=== PATIENT | female | born 1950 | race Caucasian/White ===

== ENCOUNTER 2020-09-07 12:36 | Emergency (ER) | payer MEDICARE ==
[~2020-09-07] VITALS: Ht 157.5 cm; Wt 47.7 kg
[2020-09-07 14:05] LABS: BASOPHILS % (AUTO) 0.8 % (0-1); EOSINOPHILS # (AUTO) 0.1 X10'3 (0-0.9); EOSINOPHILS % (AUTO) 1.4 % (0-6); HEMATOCRIT 42.2 % (35.0-45.0); HEMOGLOBIN 13.9 g/dl (12.0-16.0); LYMPHOCYTES # (AUTO) 0.9 X10'3 (1.1-4.8); LYMPHOCYTES % (AUTO) 14.5 % (21-51); MEAN CORPUSCULAR HGB CONC 32.9 g/dL (33.0-36.5); MEAN CORPUSCULAR VOLUME 88.2 FL (78-98); MONOCYTES # (AUTO) 0.3 X10'3 (0-0.9); MONOCYTES % (AUTO) 4.9 % (2-12); NEUTROPHILS # (AUTO) 4.9 X10'3 (1.8-7.7); NEUTROPHILS % (AUTO) 78.4 % (42-75); PLATELET COUNT 276 X10'3 (140-440); RED BLOOD COUNT 4.79 X10'6 (4.20-5.60); RED CELL DISTRIBUTION WIDTH 13.6 % (11.5-14.5); WHITE BLOOD COUNT 6.3 X10'3 (4.5-11.0)
[2020-09-07 14:15] LABS: CHLORIDE 108 MMOL/L (99-107); GLUCOSE 103 MG/DL (70-104); POTASSIUM 4.5 MMOL/L (3.5-5.1); SODIUM 144 MMOL/L (135-145); TOTAL CARBON DIOXIDE 28.6 MMOL/L (24-32)
[2020-09-07 14:16] LABS: ALANINE AMINOTRANSFERASE 21 U/L (12-78); ALBUMIN 3.9 G/DL (3.4-5.0); ALBUMIN/GLOBULIN RATIO 1.2 (1.1-1.5); ALKALINE PHOSPHATASE 54 IU/L (46-116); ANION GAP 7 (8-16); ASPARTATE AMINO TRANSFERASE 26 U/L (10-37); BILIRUBIN,TOTAL 0.4 MG/DL (0.1-1.0); BLOOD UREA NITROGEN 12 MG/DL (7-18); BUN/CREATININE RATIO 18.5 (6.6-38.0); CALCIUM 9.1 MG/DL (8.5-10.1); CREATININE 0.65 MG/DL (0.40-0.90); LIPASE 182 U/L (73-393); TOTAL PROTEIN 7.2 G/DL (6.4-8.2); eGFR 90 ML/MIN
[2020-09-07 14:22] LABS: CLARITY,URINE CLEAR (Clear); COLOR,URINE YELLOW (Yellow); GLUCOSE, URINE NEGATIVE (Neg); KETONES,URINE NEGATIVE (Neg); LEUKOCYTE ESTERASE ,URINE NEGATIVE (Neg); NITRITES, URINE NEGATIVE (Neg); OCCULT BLOOD,URINE TRACE-INTACT (Neg); PH,URINE 5.5 (4.8-8.0); PROTEIN,URINE NEGATIVE (Neg); UROBILINOGEN,URINE 0.2 E.U/dL (0.2-1.0)
[2020-09-07 14:26] LABS: UA COLLECTION TYPE CLN CATCH MIDSTREAM
[2020-09-07 14:32] LABS: SQUAMOUS EPITHELIAL CELL,UR MODERATE /LPF (FEW)
[2020-09-07 14:33] LABS: BACTERIA,URINE FEW /HPF (Neg)
[2020-09-07 14:38] LABS: TRANSITIONAL EPI CELLS,URINE FEW /HPF
[2020-09-07 14:39] LABS: MUCUS STRANDS FEW /LPF (Neg); RBC,URINE 0-2 /HPF (0-2); WBC,URINE 0-4 /HPF (0-4)
[2020-09-07 16:39] VITALS: BP 138/67
== END 2020-09-07 16:44 | disposition home or self-care (01) ==
LOC: ER 12:37
DX: R10.84 Generalized abdominal pain (principal); Z98.890 Other specified postprocedural states
CPT/HCPCS: 36415; 74176; 80053; 81001; 83690; 85025; 99284

== ENCOUNTER 2024-10-15 12:30 | Emergency (ER) | payer MEDICARE, OTHER ==
[~2024-10-15] VITALS: Ht 157.5 cm; Wt 48.6 kg
[2024-10-15 12:34] VITALS: TEMP 97.8
--- NOTE | 2024-10-15 12:48 | ELECTROCARDIOGRAPH REPORT ---
[facility] Test Date: 2024-10-15 Test Time: 12:46:09 Pat Name: CALLUM HOWELL Department: EMERGENCY ROOM Room: Gender: F [employer]: ZACHERY : [id number] Requested By: ROMY SCHMITT Order Number: [id number] Reading MD: Dr. Surya Matute Measurements Intervals [place] Rate: 100 P: 73 PA: 119 QRS: 76 QRSD: 84 T: 62 QT: 362 QTc: 467 Interpretive Statements Sinus tachycardia Low voltage, precordial leads Electronically Signed On 10-22-2024 21:44:[address] Surya Matute Please click the below link to view image of tracing.
[2024-10-15 13:14] VITALS: BP 125/82; PULSE 102; RESP 22; O2SAT 97
[2024-10-15 13:16] LABS: BASOPHILS % (AUTO) 0.5 % (0-1); EOSINOPHILS % (AUTO) 0.2 % (0-6); HEMOGLOBIN 14.9 g/dl (12.0-16.0); LYMPHOCYTES # (AUTO) 0.5 X10'3 (1.1-4.8); MEAN CORPUSCULAR HEMOGLOBIN 30.3 PG (27.0-31.0); MEAN CORPUSCULAR HGB CONC 33.8 g/dL (33.0-36.5); MEAN CORPUSCULAR VOLUME 89.7 FL (78-98); MEAN PLATELET VOLUME 8.9 FL (7.4-10.4); MONOCYTES # (AUTO) 0.2 X10'3 (0-0.9); MONOCYTES % (AUTO) 2.6 % (2-12); NEUTROPHILS # (AUTO) 5.9 X10'3 (1.8-7.7); NEUTROPHILS % (AUTO) 88.7 % (42-75); PLATELET COUNT 242 X10'3 (140-440); RED BLOOD COUNT 4.91 X10'6 (4.20-5.60); RED CELL DISTRIBUTION WIDTH 12.8 % (11.5-14.5); WHITE BLOOD COUNT 6.7 X10'3 (4.5-11.0)
[2024-10-15 13:33] LABS: BILIRUBIN,URINE NEGATIVE (Neg); CLARITY,URINE CLEAR (Clear); COLOR,URINE YELLOW (Yellow); GLUCOSE, URINE NEGATIVE (Neg); KETONES,URINE NEGATIVE (Neg); LEUKOCYTE ESTERASE ,URINE NEGATIVE (Neg); NITRITES, URINE NEGATIVE (Neg); OCCULT BLOOD,URINE SMALL (Neg); PROTEIN,URINE NEGATIVE (Neg); UROBILINOGEN,URINE 0.2 E.U/dL (0.2-1.0)
--- NOTE | 2024-10-15 13:34 | RADIOLOGY REPORT ---
CHEST RADIOGRAPH Indication: CP Technique: Single frontal view of the chest was obtained Comparison: None FINDINGS: The cardiac silhouette is unremarkable. The lungs demonstrate no pulmonary airspace consolidation. Le ft upper lobe scarring. The pulmonary vasculature is mildly prominent. Aortic atherosclerotic diseas e. There is no pleural effusion.. There is no pneumothorax. IMPRESSION: 1. As above << >>
[2024-10-15 13:38] LABS: ALANINE AMINOTRANSFERASE 18 U/L (12-78); ALBUMIN 3.6 G/DL (3.4-5.0); ALBUMIN/GLOBULIN RATIO 1.3 (1.1-1.5); ALKALINE PHOSPHATASE 41 IU/L (46-116); ANION GAP 10 (8-16); ASPARTATE AMINO TRANSFERASE 25 U/L (10-37); BILIRUBIN,TOTAL 0.6 MG/DL (0.1-1.0); BLOOD UREA NITROGEN 14 MG/DL (7-18); BUN/CREATININE RATIO 17.5 (10.0-20.0); CALCIUM 8.8 MG/DL (8.5-10.1); CHLORIDE 108 MMOL/L (99-107); GLUCOSE 135 MG/DL (70-104); SODIUM 143 MMOL/L (135-145); TOTAL CARBON DIOXIDE 25.5 MMOL/L (24-32); TOTAL PROTEIN 6.4 G/DL (6.4-8.2); eCRCL 47 ML/MIN; eGFR 70 ML/MIN
[2024-10-15 13:44] LABS: PRO BRAIN NATRIURETIC PEPTIDE 63 PG/ML (0-450)
[2024-10-15 13:46] LABS: POTASSIUM 4.3 MMOL/L (3.5-5.1)
[2024-10-15 13:50] LABS: UA COLLECTION TYPE VOIDED
[2024-10-15 13:51] LABS: BACTERIA,URINE 1+ /HPF (Neg); MUCUS STRANDS FEW /LPF (Neg); SQUAMOUS EPITHELIAL CELL,UR FEW /LPF (FEW); TRANSITIONAL EPI CELLS,URINE FEW /HPF; WBC,URINE 0-4 /HPF (0-4)
[2024-10-15 13:52] LABS: AMORPHOUS URATES 1+
--- NOTE | 2024-10-15 15:22 | Physician Documentation ---
History of Present Illness ~ Chief Complaint: Shortness of Breath Stated Complaint: LOW 02 Time Seen by MD: 12:53 Primary Medical Doctor: Emma HINKLE HPI 73 year old female reports recent history of weakness and fatigue, low oxygen saturations noted at home. She has a history of hypothyroidism as well as sarcoidosis and takes chronic steroids. She denies chest pain, fevers, sore throat or URI symptoms, N/V/D, urinary symptoms. Medication Reconciliation Allergies: Coded Allergies: phenytoin (Verified Allergy, Unknown, VISION CHANGES, 10/15/24) prochlorperazine (Verified Allergy, Unknown, NECK STIFFINESS, 10/15/24) Past Medical History Past Medical History: *GI/HEPATOBILIARY*, Bowel Obstruction Past Surgical History: abdominal surgery Drug Use: none Lives In: Home Review of Systems All Other Systems at this time: Reviewed and Negative Physical Exam Vital Signs: RN Vital Signs have been reviewed: Yes, Temperature: 97.8, Heart Rate: 102, Respiratory Rate: 22, BP: 125/82, Pulse Oximetry: 97, Weight: 48.640 Oxygen Flow Rate: 0 Physical Exam HEENT: PERRL, moist oral mucosa, EOMI Pulmonary: No respiratory distress CTAB Cardiac: RRR, no murmur, rub or gallop GI: nondistended, soft, nontender, no guarding, no rebound MSK: no deformity Skin: w/d/i, no rash Neuro: alert, nonfocal Psych: normal affect Progress Results/Orders Results/Orders Orders - ROMY SCHMITT MD Chest,Single View (10/15/24 13:11) Monitor (10/15/24 12:40) Saline Lock (10/15/24 12:40) Oxygen (10/15/24 12:40) Hs Troponin I W Calculations (10/15/24 14:40) Hs Troponin I W Calculations (10/15/24 15:40) Completed Orders - ROMY SCHMITT MD Chest,Single View (10/15/24 13:11) Cbc/Diff (10/15/24 12:40) PBNP (10/15/24 12:40) Electrocardiogram (10/15/24 12:40) CMP (10/15/24 12:40) Hs Troponin I W Calculations (10/15/24 12:40) Ua W/Microscopic, Cult If Ind (10/15/24 13:17) Vital Signs 10/15/24 10/15/24 10/15/24 12:34 13:11 13:14 Temp 97.8 Pulse 107 102 Resp 18 22 B/P (MAP) 137/85 125/82 (96) Pulse Ox 98 97 O2 Flow Rate 0 0 Laboratory Tests Test 10/15/24 12:54 10/15/24 13:17 White Blood Count 6.7 Red Blood Count 4.91 Hemoglobin 14.9 Hematocrit 44.0 Mean Corpuscular Volume 89.7 Mean Corpuscular Hemoglobin 30.3 Mean Corpuscular Hemoglobin Concent 33.8 Red Cell Distribution Width 12.8 Platelet Count 242 Mean Platelet Volume 8.9 Neutrophils (%) (Auto) 88.7 H Lymphocytes (%) (Auto) 8.0 L Monocytes (%) (Auto) 2.6 Eosinophils (%) (Auto) 0.2 Basophils (%) (Auto) 0.5 Neutrophils # (Auto) 5.9 Lymphocytes # (Auto) 0.5 L Monocytes # (Auto) 0.2 Eosinophils # (Auto) 0.0 Basophils # (Auto) 0.0 CBC Comment Sodium Level 143 Potassium Level 4.3 Chloride Level 108 H Carbon Dioxide Level 25.5 Anion Gap 10 Blood Urea Nitrogen 14 Creatinine 0.80 Estimated GFR/1.73 m2 70 BUN/Creatinine Ratio 17.5 Glucose Level 135 H Calcium Level 8.8 Total Bilirubin 0.6 Aspartate Amino Transf (AST/SGOT) 25 Alanine Aminotransferase (ALT/SGPT) 18 Alkaline Phosphatase 41 L Troponin I High Sensitivity 4 Pro-B-Type Natriuretic Peptide 63 Total Protein 6.4 Albumin 3.6 Globulin 2.8 Albumin/Globulin Ratio 1.3 Chemistry Comments Urine Specimen Description Voided Urine Color Yellow Urine Clarity Clear Urine pH 6.0 Urine Specific [place] 1.010 Urine Protein Negative Urine Glucose (UA) Negative Urine Ketones Negative Urine Occult Blood Small Urine Nitrite Negative Urine Bilirubin Negative Urine Urobilinogen 0.2 Urine Leukocyte Esterase Negative Urine RBC 3-10 Urine WBC 0-4 Urine Squamous Epithelial Cells Few Urine Transitional Epithelial Cells Few Urine Amorphous Urates 1+ Urine Bacteria 1+ Urine Mucus Few Urine Culture Indicated Not ind Volume Urine Centrifuged 10 ml Urine Comment EKG/XRAY/CT/US/VASC/MRI EKG : Indication: weakness EKG Rate: 100 EKG: sinus tach, no ST T wave changes Additional Comment my interpretation: sinus tachycardia, no STEMI criteria, no dysrhythmia Chest X-Ray : Interpreted By: self Views: 1 VIEW Indication: weakness Lungs: normal Mediastinum: normal Ribs/Bones: normal Abdomen: normal Impression: no acute disease Medical Decision Making Findings 73 year old female with generalized weakness. Exam, vitals, and workup was entirely negative for acute findings. I offered admission but patient adamantly refused. Will follow up with PCP. Return precautions. Differential Dx:Considerations: Include: CHF, COPD, dysrhythmia, hypertension, essential, hypertension, malignant, hyponatremia, panic attack, pneumonia, pneumonitis, pneumothorax, pulmonary embolism, respiratory distress, respiratory failure, upper resp. infection Departure Disposition: 01 HOME / SELF CARE / HOMELESS Impression: Primary Impression: Weakness Condition: Stable Discharge Instructions: Weakness Referrals: NO PRIMARY CARE PROVIDER (PCP) Education Educated: Patient, Family Educated regarding: diagnosis, treatment, prognosis, need for follow up Signature Scribe Signature: .. Attestation: . ROMY SCHMITT MD October 15, 2024 15:22
== END 2024-10-15 15:48 | disposition home or self-care (01) ==
LOC: ER 12:30
DX: R53.1 Weakness (principal); E03.9 Hypothyroidism, unspecified; R53.83 Other fatigue; R06.02 Shortness of breath
CPT/HCPCS: 36415; 71045; 80053; 81001; 83880; 84484; 85025; 93005; 99285